=== PATIENT | female | born 1960 | race African-American/Black ===

== ENCOUNTER 2016-08-09 16:14 | Observation (INO) | payer OTHER, MEDICAID ==
[~2016-08-09] VITALS: Ht 167.6 cm; Wt 95.0 kg
[~2016-08-09 16:14] MED LIST: EXFO5TAB PO; HYDR-3533 PO
[2016-08-09 16:19] VITALS: BP 111/63; PULSE 55; RESP 16; O2SAT 100
[2016-08-09 16:25] LABS: MEAN CORPUSCULAR HGB CONC 36.3 % (32.0-36.0)
[2016-08-09] MEDS ORDERED: cancer med (16:26)
[2016-08-09] MEDS ORDERED: LOSA100T PO (16:26)
[2016-08-09] MEDS ORDERED: AMLO10TA2 PO (16:26)
[2016-08-09 16:28] VITALS: BP_SYST 108; BP_SYST 123; BP_DIAS 66; BP_DIAS 71; PULSE 56; RESP 16; TEMP 99.2; O2SAT 100
[2016-08-09] MEDS ORDERED: SODIUM CHLORIDE 0.9% FLUSH 5 ML FLUSH IVF PRN ×2 (16:30→19:15)
[2016-08-09] MEDS ORDERED: ASPIRIN 325 MG TAB PO ONE (16:30)
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
[2016-08-09 16:59] LABS: AUTOMATED NEUTROPHIL # 4.5 TH/MM3 (1.8-7.7); BASOPHIL % 0.6 % (0.0-2.0); EOSINOPHIL # 0.1 TH/MM3 (0-0.4); EOSINOPHIL % 1.8 % (0.0-4.0); HEMATOCRIT 29.5 % (35.0-46.0); LYMPH % 27.7 % (9.0-44.0); MEAN CELL VOLUME 81.4 FL (80.0-100.0); MEAN CORPUSCULAR HEMOGLOBIN 29.6 PG (27.0-34.0); MONO % 7.5 % (0.0-8.0); NEUT % 62.4 % (16.0-70.0); PLATELET COUNT 168 TH/MM3 (150-450); RED BLOOD COUNT 3.62 MIL/MM3 (4.00-5.30); WHITE BLOOD COUNT 7.2 TH/MM3 (4.0-11.0)
[2016-08-09 17:04] LABS: HEMO FLAGS AUTO DIFF
[2016-08-09 17:11] LABS: APTT (PATIENT) 24.9 SEC (24.3-30.1); PROTHROMBIN TIME - PATIENT 11.2 SEC (9.8-11.6)
--- NOTE | 2016-08-09 17:14 | RADRPT ---
EXAM DATE/TIME: 08/09/2016 16:57 [facility] COMPARISON: CHEST SINGLE AP, August 29, 2015, 23:50. INDICATIONS : Chest pain during treatment today. MEDICAL HISTORY : Carcinoma, breast. Radiation therapy. SURGICAL HISTORY : Mastectomy, bilateral. ENCOUNTER: Initial ACUITY: 1 day PAIN SCORE: 7/10 LOCATION: Left chest/neck. FINDINGS: A single view of the chest demonstrates the lungs to be symmetrically aerated without evidence of mas s, infiltrate or effusion. The cardiomediastinal contours are unremarkable. Osseous structures are intact. CONCLUSION: No acute disease. No significant change has occurred. Manav Cobb MD on August 09, 2016 at 17:12 Board Certified Radiologist. This report was verified electronically.
[2016-08-09 17:16] LABS: ANION GAP 6 MEQ/L (5-15); BICARBONATE 29.9 MEQ/L (21.0-32.0); BLOOD UREA NITROGEN 20 MG/DL (7-18); CHLORIDE 104 MEQ/L (98-107); GLOMERULAR FILTRATION RATE 53 ML/MIN (>89); POTASSIUM 3.3 MEQ/L (3.5-5.1); SODIUM (NA) 140 MEQ/L (136-145)
[2016-08-09 17:21] LABS: CREATINE KINASE 58 U/L (26-192)
[2016-08-09 17:56] LABS: PLATELET ESTIMATE SMEAR NORMAL (NORMAL); PLATELET MORPHOLOGY NORMAL (NORMAL); SCAN/DIFF AUTO DIFF CONFIRMED
[2016-08-09 17:57] LABS: STOMATOCYTES 1+ (NORMAL)
[2016-08-09 18:00] VITALS: BP 110/69; PULSE 58; RESP 16; O2SAT 98
[2016-08-09] MEDS ORDERED: POTASSIUM CHLORIDE 20 MEQ CONTROLLED RELEASE TAB PO ONE (18:15)
[2016-08-09] MEDS ORDERED: SODIUM CHLOR 0.9% 1000 ML INJ 1,000 ML IV ONE (18:15)
[2016-08-09 19:05] VITALS: BP 122/76; PULSE 55; RESP 16; O2SAT 98
[2016-08-09] MEDS: SODIUM CHLORIDE 0.9% FLUSH 5 ML FLUSH IVF SCH (20:52)
[2016-08-09 23:00] VITALS: BP 103/58; PULSE 58; RESP 19; O2SAT 99
[2016-08-09 23:45] VITALS: PULSE 55
[2016-08-10 00:50] VITALS: BP 110/74; PULSE 85; RESP 18; TEMP 97.9; O2SAT 97
[2016-08-10 04:25] VITALS: PULSE 55
[2016-08-10 08:00] VITALS: BP 119/75; PULSE 53; PULSE 93; RESP 16; TEMP 97.3; O2SAT 95
[2016-08-10] MEDS: SODIUM CHLORIDE 0.9% FLUSH 5 ML FLUSH IVF SCH (08:22)
[2016-08-10] MEDS ORDERED: LOSA100T PO (08:29)
[2016-08-10] MEDS ORDERED: AMLO2.5T PO (08:29)
--- NOTE | 2016-08-10 10:47 | MH ---
cc: BRAIN NEVILLE MD DATE OF ADMISSION: 08/09/2016 DATE OF : 1960 CHIEF COMPLAINT Chest pain. HISTORY OF PRESENT ILLNESS This 56-year-old female who presents to the ED from her oncology visit with a complaint of developing a left-sided sharp discomfort in her chest that radiated to her left jaw. It lasted about 3 minutes. It has not recurred. She had no associated shortness of breath, nausea or diaphoresis. Denies history of heart disease. She was concerned, however. The patient was diagnosed with breast cancer and had a double mastectomy March of 2016 and is undergoing radiation therapy. PAST MEDICAL HISTORY 1. Breast cancer with double mastectomy March 2016 and undergoing radiation therapy. 2. Hypertension. 3. Sickle-cell trait. 4. Gastroesophageal reflux disease. Denies CAD, hyperlipidemia and diabetes. FAMILY HISTORY Positive for father having CAD. SOCIAL HISTORY The patient smokes about a quarter pack of cigarettes daily. Denies alcohol or illicit drugs. PAST SURGICAL HISTORY 1. Double mastectomy March 2016. 2. Cholecystectomy. PAST CARDIAC TESTING She has had two heart catheterizations, most recently 2003 and states that they were both normal. ALLERGIES DARVOCET, MORPHINE, NAPROXEN, CODEINE, DOLOBID, CHERRIES. MEDICATIONS Current medications include: 1. Amlodipine 2.5 mg daily. 2. Losartan 100 mg daily. 3. Klonopin as well as a cancer medication she cannot recall the name. REVIEW OF SYSTEMS GENERAL: Denies fevers or chills. Denies recent illnesses. HEENT: Denies headache, earache, sore throat, difficulty swallowing. CARDIOVASCULAR: Describes the discomfort as mentioned above. Denies diaphoresis. Denies sensation of heart beating rapidly or irregularly. Denies syncope. RESPIRATORY: Denies shortness of breath or inspirational chest discomfort. Denies coughing, wheezing or hemoptysis. GI: Denies nausea, vomiting, diarrhea, abdominal pain or blood in stool. MUSCULOSKELETAL: Denies joint pain or edema. Denies calf pain or edema. NEUROVASCULAR: Denies headache or dizziness. ENDOCRINE: Denies polyuria, polydipsia. HEMATOLOGIC: Denies easy bruising. SKIN: Denies rash or itching. PHYSICAL EXAMINATION VITAL SIGNS: In the emergency department initially included a blood pressure 111/63, heart rate 55, respirations 16, pulse oximetry 100% on room air. Most recent vital signs include blood pressure 110/74, heart rate 85, respirations 18, pulse oximetry 97% on room air. She is afebrile. GENERAL: The patient is seen in the examination room in no apparent distress. She is very pleasant. She speaks in clear and complete sentences. HEENT: Head is atraumatic, normocephalic. NECK: Supple without lymphadenopathy. Trachea is midline. No JVD or carotid bruits. CARDIOVASCULAR: Regular rate and rhythm without murmur, gallop or rub. RESPIRATORY: Lungs are clear to auscultation bilaterally. No wheezing, rales or rhonchi. No reproducible chest wall discomfort. No use of accessory muscles. GI: Abdomen is nontender, nondistended. Bowel sounds are normal. No guarding or rebound. No obvious pulsatile mass or bruit. No CVA tenderness. Strong femoral pulses bilaterally. MUSCULOSKELETAL: Patient moving upper and lower extremities freely. No joint tenderness or edema. No calf tenderness or edema, no Homans' sign. Strong pulses in upper and lower extremities. NEUROVASCULAR: The patient is alert and oriented. Cranial nerves II-XII are grossly intact. No focal deficits and speech is clear. SKIN: No rash and turgor is normal. LABORATORY DATA CBC essentially is unremarkable. Coagulation studies are unremarkable. Basic metabolic panel has potassium decreased at 3.3. BUN is mildly elevated at 20, creatinine is mildly elevated at 1.26, GFR is decreased 53. Serial cardiac enzymes are normal x3. IMAGING STUDIES Single view chest x-ray read by radiology as no acute disease. No significant change occurred. EKGs Sinus bradycardia without significant ST-segment depression or elevation. ASSESSMENT AND PLAN 1. Chest pain: Her discomfort is atypical. She has had serial cardiac enzymes and EKGs for ruling out purposes. She has been seen by Dr. Brain Neville of cardiology in the chest pain center. She will undergo a Lexiscan and if that were to be nonischemic she will be discharged home with instructions to follow up with local physician. 2. Hypertension: Continue current medication. 3. Breast cancer: She had mastectomies, is undergoing radiation therapy. She is to continue her direction of her oncologist. 4. Gastroesophageal reflux disease: Continue current medication. 5. Tobacco abuse: The patient has been counseled on the importance of smoking cessation. 6. Renal insufficiency: The patient was given IV hydration in the ER. She should have this followed. 7. Hypokalemia: The patient has been given potassium supplementation. The patient is stable at this time. She is agreeable to this plan. Dictated by: Jc Hassan PA-C MD NANETTE Corrales/ROMAN /9:28 AM /10:46 AM
[2016-08-10] MEDS ORDERED: REGADENOSON INJ 0.4 MG/5 ML SYR ONE (12:07)
--- NOTE | 2016-08-10 15:05 | EKG ---
Date Performed: 08/09/2016 Time Performed: 23:06:44 PTAGE: 56 years EKG: SINUS BRADYCARDIA BORDERLINE ECG PREVIOUS TRACING : 08/09/2016 19.11 Since previous tracing, no significant change noted DOCTOR: Tashi Neville Interpretating Date/Time 08/10/2016 15:03:47
--- NOTE | 2016-08-10 15:06 | EKG ---
Date Performed: 08/09/2016 Time Performed: 19:11:13 PTAGE: 56 years EKG: SINUS BRADYCARDIA BORDERLINE ECG PREVIOUS TRACING : 08/09/2016 16.17 Since previous tracing, no significant change noted DOCTOR: Tashi Neville Interpretating Date/Time 08/10/2016 15:04:59
--- NOTE | 2016-08-10 15:07 | EKG ---
Date Performed: 08/09/2016 Time Performed: 16:17:50 PTAGE: 56 years EKG: SINUS BRADYCARDIA NONSPECIFIC T-WAVE ABNORMALITY BORDERLINE ECG PREVIOUS TRACING : 03/06/2016 16.05 Since previous tracing, no significant change noted DOCTOR: Tashi Neville Interpretating Date/Time 08/10/2016 15:05:32
--- NOTE | 2016-08-10 15:43 | RADRPT ---
EXAM DATE/TIME: 08/10/2016 11:24 [facility] COMPARISON: MYOCARDIAL PERF PHARM SPECT, GATED W/EF, February 13, 2012, 10:04. EXTERNAL COMPARISON : [facility], US Transthoracic Echocardiogram, May 12, 2016 INDICATIONS : Left sided chest pain radiating to left jaw for 1 day. Angina. Coronary artery disease. DOSE: 34.9 mCi Tc99m Myoview at stress. 10.8 mCi Tc99m Myoview at rest. 0.4 mg Lexiscan STRESS SYMPTOMS: Shortness of breath, nausea and headache. EJECTION FRACTION: 53% MEDICAL HISTORY : Hypertension. Carcinoma, breast. SURGICAL HISTORY : Mastectomy, bilateral. Cholecystectomy. ENCOUNTER: Initial ACUITY: 1 day PAIN SCALE: 2/10 LOCATION: Left chest TECHNIQUE: The patient underwent pharmacologic stress with infusion of prescribed dose. Continuous ECG tracing was monitored during stress. Gated SPECT imaging was performed after stress and conventional SPECT i maging was performed at rest. The examination was performed on a SPECT/CT scanner, both attenuation and non-corrected datasets were reviewed. FINDINGS: DISTRIBUTION: The maximum perfused segment at stress is in the septal wall. PERFUSION STUDY: The pattern of perfusion at stress is within normal limits. GATED STUDY: There is intact wall motion and thickening without hypokinetic or dyskinetic segments. CONCLUSION: No reversible perfusion defect to suggest stress-induced myocardial ischemia. RISK CATEGORY: Low (<1% Annual Mortality Rate) Mahendra Gomes MD on August 10, 2016 at 15:41 Board Certified Radiologist. This report was verified electronically.
--- NOTE | 2016-08-10 15:46 | HHI.DCPOC ---
Discharge Care Plan Diagnosis: (1) Chest pain, atypical (2) Hypertension (3) Hypokalemia (4) Tobacco abuse (5) Breast CA (6) Renal insufficiency Goals to Promote Your Health * To prevent worsening of your condition and complications * To maintain your health at the optimal level Directions to Meet Your Goals Take your medications as prescribed Follow your dietary instruction Follow activity as directed Keep your appointments as scheduled Take your immunizations and boosters as scheduled If your symptoms worsen call your PCP, if no PCP go to Urgent Care Center or Emergency Room Smoking is Dangerous to Your Health. Avoid second hand smoke Call the 24-hour hour crisis hotline for domestic abuse at Jc Hassan Aug 10, 2016 15:46
--- NOTE | 2016-08-11 15:30 | TR ---
Date Performed: 08/10/2016 Time Performed: 14:05:38 DOCTOR: Tashi Neville DRUG LIST: CLINICAL HISTORY: CHEST PAIN REASON FOR TEST: REASON FOR ENDING: OBSERVATION: CONCLUSION: Lexiscan stress test was performed under standard four minute protocol. Radionuclid e was injected one minute prior to ending the test. No electrocardiographic abormalities were present to suggest ischemia. Nuclear imaging and interpretation are pending. COMMENTS:
== END 2016-08-10 16:43 | disposition home or self-care (01) ==
LOC: NEPA 16:14 → NEDA 18:31 → NEDH 22:31 → NEPGCP 08-10 00:23
PROVIDERS: ADMIT Internal Medicine Cardiovascular Disease; ATTEND Internal Medicine Cardiovascular Disease
DX: R07.89 Other chest pain (principal); I25.10 Atherosclerotic heart disease of native coronary artery without angina pectoris; I10 Essential (primary) hypertension; E87.6 Hypokalemia; C50.919 Malignant neoplasm of unspecified site of unspecified female breast; J44.9 Chronic obstructive pulmonary disease, unspecified; N28.9 Disorder of kidney and ureter, unspecified; K21.9 Gastro-esophageal reflux disease without esophagitis; F17.210 Nicotine dependence, cigarettes, uncomplicated; Z90.10 Acquired absence of unspecified breast and nipple; Z86.73 Personal history of transient ischemic attack (TIA), and cerebral infarction without residual deficits
CPT/HCPCS: 71010; 78452; 80048; 82550; 83735; 84484; 85025; 85610; 85730; 93005; 93017; 99285; A9502; G0378; J2785; J7030; 76937